=== PATIENT | female | born 1975 | race Asian ===

== ENCOUNTER → 2023-11-10 17:30 | Outpatient (REF) | payer OTHER, SELFPAY | LOC: WDC 17:30 | PROVIDERS: ATTENDING PHYSICIAN Nurse Practitioner Adult Health; FAMILY PHYSICIAN Nurse Practitioner | DX: Z12.31 Encounter for screening mammogram for malignant neoplasm of breast (principal) | CPT/HCPCS: 77063; 77067 ==

== ENCOUNTER → 2024-11-14 17:51 | Outpatient (REF) | payer OTHER, SELFPAY | LOC: WDC 17:51 | PROVIDERS: ATTENDING PHYSICIAN Nurse Practitioner Adult Health; FAMILY PHYSICIAN Nurse Practitioner | DX: Z12.31 Encounter for screening mammogram for malignant neoplasm of breast (principal) | CPT/HCPCS: 77063; 77067 ==